=== PATIENT | male | born 1945 | race Caucasian/White ===

== ENCOUNTER 2024-10-02 16:51 | Inpatient (IN) | payer OTHER, SELFPAY ==
[2024-10-02] VITALS (16 sets, daily range): BP systolic 109–149; BP diastolic 64–82; PULSE 99–128; TEMP 36.3–36.8; O2SAT 84–99; BMI 22.2; BMI 20.9
--- NOTE | 2024-10-02 17:12 | XR_ITS ---
[facility] [id number] Patient Name: DEYANIRA CUMMINGS MRN: [id number] date: 1945 Sex: M Assigned Patient Location: ER Current Patient Location: ED.MAIN Accession/Order Number: [id number] Exam Date: 10/02/2024 17:30 Report Date: 10/02/2024 19:08 At the request of: BRENDA ODONNELL Procedure: XR chest 1V EXAM: CHEST X-RAY HISTORY: Chest pain. COMPARISON: None. TECHNIQUE: 1 view chest is submitted for review. FINDINGS: Lines and tubes: Port-A-Cath seen on the right. The lungs are hyperexpanded. Airspace opacities in bilateral lower lobes with blunting of the right costophrenic angle. Right-sided effusion demonstrated. The cardiac silhouette is enlarged.. Pulmonary vascularity is prominent Osseous structures demonstrate side plate and screws overlying the right clavicle. XR/XR chest 1V IMPRESSION: 1. Cardiomegaly with bibasilar effusions right greater than left. 2. Hyperexpanded lungs with prominent interstitial lung markings. Please correlate for pneumonia versus fluid overload. Electronically authenticated by: MEREDITH PEDRAZA Date: 10/02/2024 19:08
[2024-10-02] MEDS: IPRATROPIUM/ALBUTEROL SULFATE 3 ML AMPUL.NEB IH (17:22)
--- NOTE | 2024-10-02 18:19 | ECG_ITS ---
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
--- NOTE | 2024-10-02 18:24 | ED_ITS ---
HPI HPI - General Adult General Chief complaint: Shortness of Breath/Dyspnea Stated complaint: SHORTNESS OF BREATH Time Seen by Provider: 10/02/24 17:03 Source: other Source information: ems Mode of arrival: ambulance History of Present Illness HPI narrative: Patient is a 79-year-old male who is presenting by EMS hypoxic. Patient normally wears 5 to 6 L of nasal cannula at home. Patient DNR CC. 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 3 years ago patient had a Whipple procedure and surgery trying to get patient in the 5 years to live at the [facility]. Patient says the [facility] has no other options for this patient after extensive testing and evaluation. Patient is a DNR CC. Patient's son is at bedside, good historian. Patient lives at home by himself. Patient states the last 3 mornings patient is been having a very hard time breathing in the morning, cough, congestion, and hard time getting out of bed. Patient is under [facility] hospice care. Patient finally came in today by EMS. Patient oxygen was 85 to 86% on 5 to 6 L of nasal cannula which she normally wears at home. Patient has no significant swelling to his extremities. No sources of bleeding. Patient did not want EMS staff starting an IV, drawing any lab work, putting patient on the monitor. Patient did not want any testing to be done. All systems are negative except as noted/marked. All systems reviewed and otherwise negative. Nurses note and vital signs reviewed and patient is hypoxic patient. Is slightly gurgling when he is speaking, audible rales. No emesis, no aspiration. General: The patient appears mild distress, slumped over to the left, on a nonrebreather at 15 L,. Patient is resting uncomfortably on cart. Patient is not toxic, lethargic, or listless Skin: Warm, dry, no pallor noted. There is no rash noted. No petechiae, purpura. Head: Normocephalic, atraumatic Eye: Normal conjunctiva, no drainage, EOMI. PERRL Ears, Nose, Mouth, and Throat: oral mucosa is moist. Nares patent. Mouth without vesicles. Cardiovascular: Regular Rate and Rhythm, no murmur, gallop, rub Respiratory: Patient is in mild respiratory distress, 15 L nonrebreather, bilateral rales, crackles, rhonchi with no wheezing. Back: non-tender, no CVA tenderness bilaterally to percussion. No CT LS midline pain GI: No distention, no edema. No tenderness to palpation, no masses appreciated. No rebound, guarding, or rigidity noted. No distention Musculoskeletal: Patient has full range of motion of all of the extremities, no motor, sensory, or focal neurological deficits Neurological: A&O x4, normal speech Psychiatric: Cooperative, slightly confused Related Data Home Medications ?Medication ?Instructions ?Recorded ?Confirmed dexamethasone 2 mg tablet 2 mg PO DAILY 10/02/24 10/02/24 ipratropium 0.5 mg-albuterol 3 mg 3 ml inhalation Q4H PRN shortness 10/02/24 10/02/24 (2.5 mg base)/3 mL nebulization of breath or wheezing soln lorazepam 0.5 mg tablet 1 mg PO BID 10/02/24 10/02/24 losartan 100 mg tablet 100 mg PO DAILY 10/02/24 10/02/24 morphine concentrate 100 mg/5 mL 10 mg PO Q2H PRN pain 10/02/24 10/02/24 (20 mg/mL) oral solution pantoprazole 40 mg tablet,delayed 40 mg PO Q12H 10/02/24 10/02/24 release sennosides 8.6 mg tablet (senna) 17.2 mg PO DAILY PRN constipation 10/02/24 10/02/24 sodium chloride 0.9 % for 3 ml inhalation Q2H PRN shortness 10/02/24 10/02/24 nebulization of breath or wheezing tamsulosin 0.4 mg capsule 0.8 mg PO .QHS 10/02/24 10/02/24 Allergies Allergy/AdvReac Type Severity Reaction Status Date / Time No Known Drug Allergies Allergy Verified 10/02/24 17:02 Opioid HPI Opioid Management Most Recent Opioid Data: Last Pain Scale 4 10/02/24 19:11 10/02/24 PFSH PFSH Social History Little interest or pleasure in doing things: not at all Feeling down, depressed, or hopeless: not at all Exam Constitutional Vital Signs, click to edit/add: Last Vital Signs Temp 98.3 F 10/02/24 17:04 Pulse 111 H 10/02/24 17:22 Resp 28 H 10/02/24 17:04 BP 149/82 H 10/02/24 17:04 Pulse Ox 93 L 10/02/24 17:27 O2 Del Method Simple Mask 10/02/24 17:27 O2 Flow Rate 6 10/02/24 17:27 Course Vital Signs Vital signs: Vital Signs Temperature 98.3 F 10/02/24 17:04 Pulse Rate 116 H 10/02/24 17:04 Respiratory Rate 28 H 10/02/24 17:04 Blood Pressure 149/82 H 10/02/24 17:04 Pulse Oximetry 86 L 10/02/24 17:04 Oxygen Delivery Method Nasal Cannula 10/02/24 17:04 Oxygen Delivery Flow Rate 6 10/02/24 17:04 Temperature 98.3 F 10/02/24 17:04 Pulse Rate 111 H 10/02/24 17:22 Respiratory Rate 28 H 10/02/24 17:04 Blood Pressure 149/82 H 10/02/24 17:04 Pulse Oximetry 93 L 10/02/24 17:27 Oxygen Delivery Method Simple Mask 10/02/24 17:27 Oxygen Delivery Flow Rate 6 10/02/24 17:27 Medical Decision Making MDM Narrative Medical decision making narrative: After lengthy HPI and physical exam when patient initially arrived with Florencia RN at bedside along with Oksana nurse corporate communications intern at bedside. Patient finally agreed to DuoNeb breathing treatment and x-ray. After patient's breathing treatment was done and x-ray completed, I took a picture of patient's x-ray and showed the patient and his son the pleural effusion, edema, probable infiltrate. Patient does have a port to his right upper chest wall. Patient is agreeing to IV establishment through the port and accessing the port. Patient will be given morphine, Lasix, Levaquin. Patient is allowing lab work to be done, and agrees with hospitalization. Son stated that he had spoken to [facility], and they do not have the capabilities of doing IV antibiotics, just oral antibiotics. Patient agrees to admission to [facility]. Test have been ordered, IV medication has been ordered. Patient is DNR CC. Vital signs have improved with DuoNeb breathing treatment and nonrebreather. 1900 patient will be transition to Dr. Ewing to review lab work, and speak to hospitalist for final admission. Lab Data Labs: Lab Results 10/02/24 Range/Units 18:35 WBC 8.3 (4.0-11.0) 10^3/uL RBC 4.31 L (4.70-6.10) 10^6/uL Hgb 13.0 L (14.0-18.0) g/dL Hct 38.6 L (42.0-54.0) % MCV 89.6 (80.0-94.0) fL MCH 30.2 (25.9-34.0) pg MCHC 33.7 (29.9-35.2) g/dL RDW 13.4 (11.0-15.0) % Plt Count 196 (150-450) 10^3/uL MPV 9.2 L (9.5-13.5) fL Seg Neuts % (Manual) 95.0 H (43.0-75.0) Lymphocytes % (Manual) 3.0 L (20.5-60.0) % Monocytes % (Manual) 2.0 (1.7-12.0) % Eosinophils % (Manual) 0.0 L (0.9-7.0) % Basophils % (Manual) 0.0 L (0.2-2.0) % Neutrophils # (Manual) 7.88 H (1.4-6.5) 10^3/uL Lymphocytes # (Manual) 0.24 L (1.20-3.80) 10^3/uL Monocytes # (Manual) 0.16 L (0.30-0.80) 10^3/uL Eosinophils # (Manual) 0.00 (0.00-0.70) 10^3/uL Basophils # (Manual) 0.00 (0.00-0.10) 10^3/uL Toxic Granulation 1+ PT 11.4 (9.0-11.6) sec INR 1.08 VBG pH 7.482 H (7.330-7.430) VBG pCO2 39.5 L (40.0-52.0) mmHg Sodium 138 (136-145) mmol/L Potassium 4.1 (3.5-5.1) mmol/L Chloride 101 (98-107) mmol/L Carbon Dioxide 29.1 (21.0-32.0) mmol/L Anion Gap 12.0 BUN 25.0 H (7.0-18.0) mg/dL Creatinine 0.84 (0.70-1.30) mg/dL Est GFR ( Amer) >60 (>=60 mL/min/1.73m^2) Est GFR (Non-Af Amer) >60 (>=60 mL/min/1.73m^2) BUN/Creatinine Ratio 29.8 Glucose 156 H (74-106) mg/dL Calcium 9.5 (8.5-10.1) mg/dL NT-Pro-B Natriuret Pep 2538.0 H* (<=1800.0) pg/mL Discharge Plan Discharge Patient Disposition: Still a Patient
[2024-10-02 18:50] LABS: PCO2 VBG 39.5 mmHg (40.0-52.0); pH VBG 7.482 (7.330-7.430)
[2024-10-02 18:53] LABS: Hematocrit 38.6 % (42.0-54.0); Mean Corpuscular HGB Conc 33.7 g/dL (29.9-35.2); Mean Corpuscular Hemoglobin 30.2 pg (25.9-34.0); Mean Corpuscular Volume 89.6 fL (80.0-94.0); Mean Platelet Volume 9.2 fL (9.5-13.5); Platelet Count 196 10^3/uL (150-450); Red Blood Count 4.31 10^6/uL (4.70-6.10); Red Cell Distribution Width 13.4 % (11.0-15.0); White Blood Count 8.3 10^3/uL (4.0-11.0)
[2024-10-02 19:03] LABS: INR 1.08; Prothrombin Time 11.4 sec (9.0-11.6)
[2024-10-02 19:07] LABS: Lymphocytes Absolute Manual 0.24 10^3/uL (1.20-3.80); Monocytes Absolute Manual 0.16 10^3/uL (0.30-0.80); Segmented Neut Absolute Manual 7.88 10^3/uL (1.4-6.5); Toxic Granulation 1+
[2024-10-02 19:11] LABS: BUN Creatinine Ratio 29.8; Calcium 9.5 mg/dL (8.5-10.1); Carbon Dioxide 29.1 mmol/L (21.0-32.0); Chloride 101 mmol/L (98-107); Estimated GFR (African America >60 (>=60 mL/min/1.73m^2); Estimated GFR (Non-African Ame >60 (>=60 mL/min/1.73m^2); Glucose 156 mg/dL (74-106); Potassium 4.1 mmol/L (3.5-5.1); Sodium 138 mmol/L (136-145)
[2024-10-02] MEDS: MORPHINE SULFATE 4 MG/ML VIAL IV (19:11)
[2024-10-02] MEDS: FUROSEMIDE 20 MG/2 ML VIAL IVP (19:13)
--- NOTE | 2024-10-02 19:14 | PC.NURSE ---
Right-sided chest port accessed, transparent dressing applied. Pt tolerated well. -ME
[2024-10-02] MEDS: LEVOFLOXACIN IN DEXTROSE 5 % 750 MG/150 ML PREMIX 100 MG IV (19:17)
--- NOTE | 2024-10-02 20:15 | ED.GENADUL1 ---
HPI HPI - General Adult General Chief complaint: Shortness of Breath/Dyspnea Stated complaint: SHORTNESS OF BREATH Time Seen by Provider: 10/02/24 17:03 Source: other Source information: ems Mode of arrival: ambulance History of Present Illness HPI narrative: 79-year-old male presents to the emergency department and was initially seen by Dr. Lawrence and signed out to me after discussing the case with him thoroughly. Please see his full history and physical exam. Related Data Home Medications ?Medication ?Instructions ?Recorded ?Confirmed dexamethasone 2 mg tablet 2 mg PO DAILY 10/02/24 10/02/24 ipratropium 0.5 mg-albuterol 3 mg 3 ml inhalation Q4H PRN shortness 10/02/24 10/02/24 (2.5 mg base)/3 mL nebulization of breath or wheezing soln lorazepam 0.5 mg tablet 1 mg PO BID 10/02/24 10/02/24 losartan 100 mg tablet 100 mg PO DAILY 10/02/24 10/02/24 morphine concentrate 100 mg/5 mL 10 mg PO Q2H PRN pain 10/02/24 10/02/24 (20 mg/mL) oral solution pantoprazole 40 mg tablet,delayed 40 mg PO Q12H 10/02/24 10/02/24 release sennosides 8.6 mg tablet (senna) 17.2 mg PO DAILY PRN constipation 10/02/24 10/02/24 sodium chloride 0.9 % for 3 ml inhalation Q2H PRN shortness 10/02/24 10/02/24 nebulization of breath or wheezing tamsulosin 0.4 mg capsule 0.8 mg PO .QHS 10/02/24 10/02/24 Allergies Allergy/AdvReac Type Severity Reaction Status Date / Time No Known Drug Allergies Allergy Verified 10/02/24 17:02 Opioid HPI Opioid Management Most Recent Opioid Data: Last Pain Scale 4 10/02/24 19:11 10/02/24 PFSH PFSH Social History Little interest or pleasure in doing things: not at all Feeling down, depressed, or hopeless: not at all Exam Constitutional Vital Signs, click to edit/add: Last Vital Signs Temp 98.3 F 10/02/24 17:04 Pulse 111 H 10/02/24 17:22 Resp 28 H 10/02/24 17:04 BP 149/82 H 10/02/24 17:04 Pulse Ox 93 L 10/02/24 17:27 O2 Del Method Simple Mask 10/02/24 17:27 O2 Flow Rate 6 10/02/24 17:27 Course Vital Signs Vital signs: Vital Signs Temperature 98.3 F 10/02/24 17:04 Pulse Rate 116 H 10/02/24 17:04 Respiratory Rate 28 H 10/02/24 17:04 Blood Pressure 149/82 H 10/02/24 17:04 Pulse Oximetry 86 L 10/02/24 17:04 Oxygen Delivery Method Nasal Cannula 10/02/24 17:04 Oxygen Delivery Flow Rate 6 10/02/24 17:04 Temperature 98.3 F 10/02/24 17:04 Pulse Rate 111 H 10/02/24 17:22 Respiratory Rate 28 H 10/02/24 17:04 Blood Pressure 149/82 H 10/02/24 17:04 Pulse Oximetry 93 L 10/02/24 17:27 Oxygen Delivery Method Simple Mask 10/02/24 17:27 Oxygen Delivery Flow Rate 6 10/02/24 17:27 Medical Decision Making MDM Narrative Medical decision making narrative: The patient has a history of pancreatic cancer and is DNR CC. Chest x-ray shows pulmonary edema and effusions and possible pneumonia. He is already been given IV Lasix and IV Levaquin. He is breathing comfortably and will be admitted for diuresis and IV antibiotics. He has been living at home and family reports that he will likely need to go to a detention after this hospitalization. Findings were discussed with his family Differential Diagnosis Differential Diagnosis: Pneumonia, pulmonary edema, pleural effusion Lab Data Lab results reviewed: Yes I reviewed the patient's lab results Labs: Lab Results 10/02/24 Range/Units 18:35 WBC 8.3 (4.0-11.0) 10^3/uL RBC 4.31 L (4.70-6.10) 10^6/uL Hgb 13.0 L (14.0-18.0) g/dL Hct 38.6 L (42.0-54.0) % MCV 89.6 (80.0-94.0) fL MCH 30.2 (25.9-34.0) pg MCHC 33.7 (29.9-35.2) g/dL RDW 13.4 (11.0-15.0) % Plt Count 196 (150-450) 10^3/uL MPV 9.2 L (9.5-13.5) fL Seg Neuts % (Manual) 95.0 H (43.0-75.0) Lymphocytes % (Manual) 3.0 L (20.5-60.0) % Monocytes % (Manual) 2.0 (1.7-12.0) % Eosinophils % (Manual) 0.0 L (0.9-7.0) % Basophils % (Manual) 0.0 L (0.2-2.0) % Neutrophils # (Manual) 7.88 H (1.4-6.5) 10^3/uL Lymphocytes # (Manual) 0.24 L (1.20-3.80) 10^3/uL Monocytes # (Manual) 0.16 L (0.30-0.80) 10^3/uL Eosinophils # (Manual) 0.00 (0.00-0.70) 10^3/uL Basophils # (Manual) 0.00 (0.00-0.10) 10^3/uL Toxic Granulation 1+ PT 11.4 (9.0-11.6) sec INR 1.08 VBG pH 7.482 H (7.330-7.430) VBG pCO2 39.5 L (40.0-52.0) mmHg Sodium 138 (136-145) mmol/L Potassium 4.1 (3.5-5.1) mmol/L Chloride 101 (98-107) mmol/L Carbon Dioxide 29.1 (21.0-32.0) mmol/L Anion Gap 12.0 BUN 25.0 H (7.0-18.0) mg/dL Creatinine 0.84 (0.70-1.30) mg/dL Est GFR ( Amer) >60 (>=60 mL/min/1.73m^2) Est GFR (Non-Af Amer) >60 (>=60 mL/min/1.73m^2) BUN/Creatinine Ratio 29.8 Glucose 156 H (74-106) mg/dL Calcium 9.5 (8.5-10.1) mg/dL NT-Pro-B Natriuret Pep 2538.0 H* (<=1800.0) pg/mL Imaging Data Chest x-ray: Radiologist's impression: ITS Impressions Chest X-Ray 10/02/24 17:12 IMPRESSION: 1. Cardiomegaly with bibasilar effusions right greater than left. 2. Hyperexpanded lungs with prominent interstitial lung markings. Please correlate for pneumonia versus fluid overload. Electronically authenticated by: MEREDITH PEDRAZA Date: 10/02/2024 19:08 Discharge Plan Discharge Chief Complaint: Shortness of Breath/Dyspnea Clinical Impression: Hypoxia, Pulmonary edema, Pleural effusion, Right lower lobe pulmonary infiltrate Patient Disposition: Admitted As Inpatient Time of Disposition Decision: 20:14 Condition: Fair
[2024-10-02 21:03] LABS: Phosphorus 4.1 mg/dL (2.6-4.7)
--- NOTE | 2024-10-02 21:25 | PC.NURSE ---
this patient awake and alert lying supine on the bed, this patient vices no concerns and shows no signs of distress, this patient's son carried this patient's clothing.
[2024-10-02] MEDS: LORAZEPAM 0.5 MG TABLET 1 MG PO (22:44)
[2024-10-02] MEDS: OMEPRAZOLE 40 MG CAPSULE.DR PO (22:44)
[2024-10-02] MEDS: TAMSULOSIN HCL 0.4 MG CAPSULE 0.8 MG PO (22:44)
[2024-10-02] MEDS: MORPHINE SULFATE 20 MG/ML ORAL CONCENTRATE SOLUTION 10 MG PO (23:05)
--- NOTE | 2024-10-02 23:23 | PC.NURSE ---
Hospice nurse visited patient and will be in contact in AM to determine plan of care.
[2024-10-03] VITALS (11 sets, daily range): BP systolic 87–122; BP diastolic 55–75; PULSE 93–105; TEMP 36.4; O2SAT 91–96; BMI 20.9
[2024-10-03] MEDS: IPRATROPIUM/ALBUTEROL SULFATE 3 ML AMPUL.NEB IH (00:10)
[2024-10-03] MEDS: MORPHINE SULFATE 20 MG/ML ORAL CONCENTRATE SOLUTION 10 MG PO ×4 (04:18→14:30)
[2024-10-03 05:57] LABS: Hematocrit 35.5 % (42.0-54.0); Hemoglobin 12.1 g/dL (14.0-18.0); Mean Corpuscular HGB Conc 34.1 g/dL (29.9-35.2); Mean Corpuscular Hemoglobin 30.6 pg (25.9-34.0); Mean Corpuscular Volume 89.6 fL (80.0-94.0); Mean Platelet Volume 9.5 fL (9.5-13.5); Platelet Count 172 10^3/uL (150-450); Red Blood Count 3.96 10^6/uL (4.70-6.10); Red Cell Distribution Width 13.4 % (11.0-15.0); White Blood Count 8.3 10^3/uL (4.0-11.0)
[2024-10-03 06:12] LABS: Anion Gap 8.2; BUN Creatinine Ratio 27.5; Calcium 9.2 mg/dL (8.5-10.1); Carbon Dioxide 32.5 mmol/L (21.0-32.0); Chloride 101 mmol/L (98-107); Estimated GFR (African America >60 (>=60 mL/min/1.73m^2); Estimated GFR (Non-African Ame >60 (>=60 mL/min/1.73m^2); Glucose 129 mg/dL (74-106); Magnesium 1.7 mg/dL (1.8-2.4); Potassium 3.7 mmol/L (3.5-5.1); Sodium 138 mmol/L (136-145)
[2024-10-03] MEDS: DEXAMETHASONE 4 MG TABLET 2 MG PO (08:23)
[2024-10-03] MEDS: LORAZEPAM 0.5 MG TABLET 1 MG PO (08:23)
[2024-10-03] MEDS: FUROSEMIDE 40 MG/4 ML VIAL IVP (08:23)
[2024-10-03] MEDS: LOSARTAN POTASSIUM 50 MG TABLET 100 MG PO (08:23)
[2024-10-03] MEDS: OMEPRAZOLE 40 MG CAPSULE.DR PO (08:23)
--- NOTE | 2024-10-03 09:21 | SWNOTE1 ---
ULISES received a message from case management and pt would like [facility] inpt unit. Pt is current with ULISES [facility] to reach out to [facility].
--- NOTE | 2024-10-03 09:26 | SWNOTE1 ---
SW reached out [facility], they were able to look up patient and they are going to reach out to coordinator and nurse to see if they have openings. She will reach back out to SW and to the pt's son as well. ULISES did reach out to Estefania at [facility] who is a md do resident urgent care just to update her.
--- NOTE | 2024-10-03 09:45 | CM.NOTE ---
Rounds made with Dr. Tom, discussed with pt diagnosis and underlying condition. Pt wishes at this time to go inpatient Hospice d/t increased work of breathing. Updated SW with pt's plan, SW reached out to Hospice to get everything in place for pt's discharge.
--- NOTE | 2024-10-03 09:54 | SWNOTE1 ---
ULISES spoke to Estefania at [facility] and she is reaching out to the director of Inpt unit to check bed availability, she requested SW fax over information to intake. She stated someone will reach back out within an hour. ULISES faxed face sheet, ED note, labs, vitals, nursing notes, and med list to [facility].
--- NOTE | 2024-10-03 10:07 | SWNOTE1 ---
ULISES spoke to Yoav from [facility] and they do have a bed for him and she is going to work on setting up transport and get back to . SW updated case management.
--- NOTE | 2024-10-03 11:17 | SWNOTE1 ---
SW spoke to Yoav at [facility] and they set up transport with [facility] for 4:30, they have notified son. SW notified nurse and did speak with son as well.
--- NOTE | 2024-10-03 13:01 | P.HP_ITS ---
HPI H&P: HPI History of Present Illness Chief complaint: hypoxia, pnemonary edema, pleural effusion Narrative: HPI and Hospital Course: 79-year-old presented via EMS for worsening SOB, acute on chronic resp failure with hypoxia. Was 86% on arrival on 5 to 6 L of oxygen patient uses 5-6 L O2 via NC and currently enrolled in hospice due to terminal Pancreatic Cancer. Patient has clinically worsened over past three months and is increasingly weak, SOB and has a hard time getting out of bed in the morning. He was brought over to ED because he could not catch his breath and get comfortable despite using Oral morphine prescribed to him dyspnea. Workup in ER revealed fluid overload l ikely secondary to acute on chronic diastolic heart failure but could very well be malignant pleural effusion along with possible infiltrate on chest x-ray. Patient was started on IV Levaquin and IV Lasix. He was admitted overnight and seen earlier today. He is currently on 5 to 6 L of oxygen via nasal cannula and more or less at his baseline. He feels short of breath at rest and during conversation. He uses morphine as needed and it usually helps. I had a detailed discussion with him and his son who was at bedside about his goals of care, treatment plan. Patient feels that he cannot continue to live at home because he is too weak and sometimes by himself. [facility] hospice was reached out and patient will be transferred to inpatient hospice unit today. For his pneumonia, his IV Levaquin can be switched to oral Levaquin for 5 more days. He will benefit from daily Lasix to help with fluid overload and the dose can be adjusted as outpatient by hospice provider. Patient can be discharged to inpatient hospice later today. Opioid HPI Opioid Management Most Recent Pain and Opioid Data: Last Pain Scale 5 10/03/24 11:43 10/03/24 Last Pain Assessment 10/03/24 11:43 Last MAR Pain Assessment 10/03/24 10:03 Last ORT Total Score 0 10/02/24 21:17 10/02/24 Last ORT Risk Category Low Risk 10/02/24 21:17 10/02/24 Review of Systems ROS Status of ROS 10 or more systems reviewed and unremark able except as noted in history and below [facility] Medical History (Updated 10/03/24 @ 13:03 by Shaikh Vaishali MD) HTN (hypertension) ?I10 - Essential (primary) hypertension (ICD-10) Prostate cancer ?C61 - Malignant neoplasm of prostate (ICD-10) Pancreatic cancer ?C25.9 - Malignant neoplasm of pancreas, unspecified (ICD-10) Surgical History (Updated 10/03/24 @ 12:26 by Leda Hinkle) Port-A-Cath in place ?Z95.828 - Presence of other vascular implants and grafts (ICD-10) Family History (Updated 10/02/24 @ 21:29 by Simi Torrez RN) Sister Family history of CHF (congestive heart failure) Mother Family history of diabetes mellitus Family history of hypertension Family history of myocardial infarction Family history of stroke Social History (Updated 10/02/24 @ 21:31 by Simi Torrez RN) Within the past year, how often did you have a drink containing alcohol: monthly or less Within the past year, how many standard drinks containing alcohol did you have on a typical day: 1 or 2 Within the past year, how often did you have six or more drinks on one occasion: never Total score: 0 Score interpretation: A score less than 4 is consistent with normal alcohol consumption. Smoking status: Never smoker Non-prescribed substance use: denies use Highest level of school completed/degree received: Bachelor's degree Are you now , , , , never or living with a partner: In a typical week, how many times do you talk on the telephone with family, friends, or neighbors: 3 or more times per week How often do you get together with friends or relatives: 3 or more times per week Little interest or pleasure in doing things: not at all Feeling down, depressed, or hopeless: not at all Feel stressed/tense/nervous/anxious/difficulty sleeping: not at all Life stressors: other Life stressor details: health Do you think of yourself as: straight/heterosexual Gender Identity: male Meds Home Medications and Allergies Home Medications ?Medication ?Instructions ?Recorded ?Confirmed ?Type dexamethasone 2 mg tablet 2 mg PO DAILY 10/02/24 10/02/24 History ipratropium 0.5 mg-albuterol 3 mg 3 ml inhalation Q4H PRN shortness 10/02/24 10/02/24 History (2.5 mg base)/3 mL nebulization of breath or wheezing soln lorazepam 0.5 mg tablet 1 mg PO BID 10/02/24 10/02/24 History losartan 100 mg tablet 100 mg PO DAILY 10/02/24 10/02/24 History morphine concentrate 100 mg/5 mL 10 mg PO Q2H PRN pain 10/02/24 10/02/24 History (20 mg/mL) oral solution pantoprazole 40 mg tablet,delayed 40 mg PO Q12H 10/02/24 10/02/24 History release sennosides 8.6 mg tablet (senna) 17.2 mg PO DAILY PRN constipation 10/02/24 10/02/24 History sodium chloride 0.9 % for 3 ml inhalation Q2H PRN shortness 10/02/24 10/02/24 History nebulization of breath or wheezing tamsulosin 0.4 mg capsule 0.8 mg PO .QHS 10/02/24 10/02/24 History Allergies Allergy/AdvReac Type Severity Reaction Status Date / Time No Known Drug Allergies Allergy Verified 10/02/24 17:02 Exam Constitutional Vital Signs, click to edit/add: Last Vital Signs Temp 97.5 F L 10/03/24 08:36 Pulse 99 H 10/03/24 08:36 Resp 20 10/03/24 08:36 BP 111/68 10/03/24 08:36 Pulse Ox 92 L 10/03/24 08:36 O2 Del Method Nasal Cannula 10/03/24 08:36 O2 Flow Rate 6 10/03/24 08:36 General appearance: cooperative, ill appearing and frail appearing Nutritional appearance: thin and underweight Respiratory Common normals: no use of accessory muscles Effort & inspection: able to speak in complete sentences and tachypneic Auscultation: diminished lung sounds Other: appears SOB at rest. Cardio Common normals: no JVD, regular rate, regular rhythm, S1 normal heart sound and S2 normal heart sound Extremity Common normals: normal to inspection and full ROM Neuro Common normals: oriented x3, moves all extremities, no focal motor deficits and no sensory deficits noted Psych Common normals: mental status grossly normal, thought process normal and cooperative Results Labs Labs: Short CBC 10/02/24 10/03/24 Range/Units 18:35 05:21 WBC 8.3 8.3 (4.0-11.0) 10^3/uL Hgb 13.0 L 12.1 L (14.0-18.0) g/dL Hct 38.6 L 35.5 L (42.0-54.0) % Plt Count 196 172 (150-450) 10^3/uL BMP 10/02/24 10/03/24 18:35 05:21 Sodium 138 138 Potassium 4.1 3.7 Chloride 101 101 Carbon Dioxide 29.1 32.5 H BUN 25.0 H 25.0 H Creatinine 0.84 0.91 Glucose 156 H 129 H Calcium 9.5 9.2 ABG ABG results: 10/02/24 18:35 VBG pH 7.482 H VBG pCO2 39.5 L Assessment and Plan Assessment and Plan (1) Acute on chronic diastolic (congestive) heart failure: (2) Right lower lobe pulmonary infiltrate: (3) Acute and chronic respiratory failure with hypoxia: (4) Pancreatic cancer: Qualifiers: Pancreatic malignancy location: unspecified Qualified Code(s): C25.9 - Malignant neoplasm of pancreas, unspecified (5) HTN (hypertension): Qualifiers: Hypertension type: primary hypertension Qualified Code(s): I10 - Essential (primary) hypertension Plan While inpatient, patient was treated with IV Lasix along with IV Levaquin. His oxygenation status improved with IV diuresis. While patient is still volume overloaded and short of breath, since he is enrolled in hospice and DNR comfort care-he can be discharged to inpatient hospice for comfort care measures and symptomatic treatment. He will benefit from oral Lasix to help with volume overload and dose can be adjusted according to his clinical status. Will also send him on oral Levaquin for possible bacterial pneumonia. Patient will be discharged today later in the afternoon to inpatient hospice. I had a detailed discussion with patient, his son about his goals of care. He does not want to continue treatment in the hospital and is interested only comfort care measures. Patient's clinical course, treatment plan was also discussed with case management and patient's nurse. All questions and concerns pertinent to his current clinical course discussed and addressed with patient and his son.
--- NOTE | 2024-10-03 13:22 | SWNOTE1 ---
SW sent dc med rec and H&P to [facility] inpatient unit. ULISES took packet to the floor and filled out the [facility] information.
== END 2024-10-03 17:00 | disposition hospice, inpatient (51) | DRG 291 ==
LOC: ER 20:15 → MS 20:54
PROVIDERS: Emergency Medicine; Registered Nurse; Admitting Provider Internal Medicine; Emergency Provider Emergency Medicine; Visit Provider Internal Medicine
DX: I11.0 Hypertensive heart disease with heart failure (principal); I50.33 Acute on chronic diastolic (congestive) heart failure; J96.21 Acute and chronic respiratory failure with hypoxia; J15.9 Unspecified bacterial pneumonia; C25.9 Malignant neoplasm of pancreas, unspecified; C79.9 Secondary malignant neoplasm of unspecified site; Z99.81 Dependence on supplemental oxygen; R91.8 Other nonspecific abnormal finding of lung field; C61 Malignant neoplasm of prostate; Z66 Do not resuscitate; R63.6 Underweight; Z68.20 Body mass index [BMI] 20.0-20.9, adult
CPT/HCPCS: 36415; 71045; 80048; 82800; 83735; 83880; 84100; 85007; 85027; 85610; 87040; 93005; 94640; 94761; 96365; 96366; 96375; 99285; J1940; J2270; J8540